=== PATIENT | male | born 1960 | race Caucasian/White ===

== ENCOUNTER 2017-06-30 16:33 | Outpatient (CLI) | payer OTHER | END 2017-06-30 16:34 | disposition home or self-care (01) | LOC: LABBT 16:33 | PROVIDERS: ATTEND Internal Medicine | DX: Z12.11 Encounter for screening for malignant neoplasm of colon (principal); C18.9 Malignant neoplasm of colon, unspecified ==

== ENCOUNTER 2017-07-05 11:31 | Day surgery (SDC) | payer OTHER ==
[2017-06-30 16:49] VITALS: BMI 52.0
[2017-07-05] MEDS ORDERED: Lidocaine 1% PF 5 ML VIAL ONE (13:19)
[2017-07-05] MEDS ORDERED: Propofol 200 MG/20 ML VIAL ONE (13:19)
--- NOTE | 2017-07-05 14:05 | OP ---
DATE OF PROCEDURE: 07/05/2017 SURGEON: Joaquin Upton M.D. HEAD OF QUALITY SURGEON: None. PROCEDURE: Flexible sigmoidoscopy. INDICATION: High risk colorectal cancer surveillance exam, due to personal history of sigmoid adeno carcinoma, status post resection and adjuvant chemotherapy. Resection occurred in 07/2016. This is his first followup colonoscopy. MEDICATIONS: See anesthesia record. FINDINGS: After discussion of the risks, benefits and alternatives of the procedure, informed conse nt was obtained and witnessed. Pre-endoscopic cardiopulmonary examination was satisfactory. Timeou t was performed before sedation was achieved. Sedation was achieved with anesthesia assistance in [facility] unit. A digital rectal exam was performed which was unremarkable. A Pentax adult colo noscope was inserted into the anus and passed forward in the usual fashion. 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 This is a high grade anastomoti c stricture. The colonoscope was unable to pass beyond the stricture or get any good views of the l umen of the colon beyond the stricture. There is some exposed staple material in the area. It othe rwise appears healthy. There is no evidence of any neoplastic process at least on the distal side o f this stricture. No bleeding or ulceration. Retroflexion in the rectum was performed which showed no additional abnormalities. The rectal mucosa all appeared normal. At this point, the colonoscop e was withdrawn and I attempted to use a small caliber upper endoscope to try to advance beyond this anastomotic stricture. Unfortunately, even the small caliber upper endoscope was unable to advance beyond the stricture. Given concerns for potential disruption of the stricture as well as the inab ility to see beyond the strictured area, I did not attempt to perform any dilation of the anastomoti c stricture today. The endoscope was completely withdrawn and the patient allowed to recover. The patient tolerated the procedure well. There were no immediate post-procedure complications. IMPRESSION: 1. 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 Unable to pass colonoscope or small caliber upper endoscope beyond this stricture. 2. Normal rectum. RECOMMENDATION: I will not be able to perform any endoscopic surveillance unless the patient were t o have another surgery with anastomotic revision. I will discuss options with the patient including whether he desires surgical referral for this purpose. Attempted endoscopic dilation of this high grade colonic stricture would be quite high risk, and if that were desired, he would need referral t o a tertiary center.
== END 2017-07-06 14:15 | disposition home or self-care (01) ==
LOC: SDC 11:31
PROVIDERS: ATTEND Internal Medicine
PROC: 0DJD8ZZ Inspection of Lower Intestinal Tract, Via Natural or Artificial Opening Endoscopic (ICD-10-PCS; principal; 2017-07-06)
DX: Z12.11 Encounter for screening for malignant neoplasm of colon (principal); I10 Essential (primary) hypertension; M10.9 Gout, unspecified; E11.9 Type 2 diabetes mellitus without complications; J30.2 Other seasonal allergic rhinitis; M19.90 Unspecified osteoarthritis, unspecified site; E78.5 Hyperlipidemia, unspecified; E66.9 Obesity, unspecified; Z68.43 Body mass index [BMI] 50.0-59.9, adult; Z79.84 Long term (current) use of oral hypoglycemic drugs; Z79.899 Other long term (current) drug therapy; Z98.42 Cataract extraction status, left eye; Z98.41 Cataract extraction status, right eye; Z96.651 Presence of right artificial knee joint; Z90.49 Acquired absence of other specified parts of digestive tract; Z98.890 Other specified postprocedural states; Z85.038 Personal history of other malignant neoplasm of large intestine; Z92.21 Personal history of antineoplastic chemotherapy; Z87.19 Personal history of other diseases of the digestive system; Z80.0 Family history of malignant neoplasm of digestive organs
CPT/HCPCS: J2001; J2704